=== PATIENT | female | born 1975 | race Caucasian/White ===

== ENCOUNTER 2021-04-28 19:42 | Emergency (ER) | payer BC ==
[2021-04-28] MEDS ORDERED: Sodium Chloride 0.9% 1000 ML 1,000 ML IV SCH (20:00)
[2021-04-28] MEDS ORDERED: Sodium Chloride 0.9% 1000 ML 1,000 ML ONE (20:02)
[2021-04-28 20:18] LABS: Absolute Neutrophil Ct (ANC) 5.81 (1.4-6.9); Basophil (Absolute #) 0.03 (0-0.4); Eosinophil % 0.6 % (0.00-5.0); Eosinophil (Absolute #) 0.05 (0-0.5); Hematocrit 42.7 % (35-47); Hemoglobin 13.9 gm/dl (12.0-16.0); Lymphocytes % 21.8 % (24.0-44.0); Mean Cell Volume 90.1 fl (78-100); Mean Corpuscular Hemoglobin 29.3 pg (26-32); Mean Corpuscular Hgb Concent. 32.6 g/dl (32-36); Mean Platelet Volume 9.9 fl (7.5-11.0); Monocyte (Absolute #) 0.58 (0.0-1.3); Neutrophil % 70.2 % (36.0-66.0); Platelet Count 329 K/mm3 (150-450); Red Blood Count 4.74 M/mm3 (4.1-5.4); Red Cell Distribution Width 13.4 % (11.5-14.0); White Blood Count 8.3 K/mm3 (4.0-10.5)
[2021-04-28 20:39] LABS: ALBUMIN 4.5 g/dL (3.5-5.0); ALKALINE PHOSPHATASE 73 U/L (38-126); ANION GAP 13.2 MEQ/L (5-15); BLOOD UREA NITROGEN 8 mg/dL (7-17); CHLORIDE 102 mmol/L (98-107); Calcium 9.7 mg/dL (8.4-10.2); Carbon Dioxide 26 mmol/L (22-30); Creatinine 1 0.81 mg/dL (0.52-1.04); EST GLOMERULAR FILTRATION RATE > 60.0 ML/MIN; Glucose 133 mg/dL (74-106); Potassium 3.7 mmol/L (3.5-5.1); SGOT/AST 16 U/L (14-36); SGPT/ALT 12 U/L (0-35); SODIUM 138 mmol/L (137-145); Total Protein 7.7 g/dL (6.3-8.2)
--- NOTE | 2021-04-28 22:10 | ERPHSYRPT ---
- History of Present Illness Time Seen by Provider: 04/28/21 19:50 Source: patient Exam Limitations: no limitations Patient Subjective Stated Complaint: pt states she has been having some shortness of breath for last 6 days, worse with activity and laying down. lt side abd pain worse with movement and deep breath for last 8 days. had a d dimer today that came back elevated at 666 and was told to come to er. Triage Nursing Assessment: pt alert and oreinted, answers questions approp. pt ambulatory with steadyg ait noted. respirations nonlabored with lungs cta. abd soft. pt reports tenderness in lt upper quad. bowel sounds present x4 Physician History: Patient is a 46-year-old female presents to our ED with complaints of shortness of breath. Patient has been experiencing shortness of breath for the past 6 days. Patient's primary care provider ordered a D-dimer which turned out to be positive. Patient here for CTA chest. No associated nausea vomiting or diaphoresis. Patient states that she is also been experiencing some left upper quadrant pain. Patient had a CT abdomen pelvis as well as a gallbladder u ltrasound performed by primary care provider. Per patient these were essentially nonremarkable. Patient voices no other complaints concerns at this time. Symptoms are mild in intensity. No specific worsening improving factors. Blood pressure was initially elevated upon arrival. Blood pressure has since normalized. Patient voices no other complaints concerns at this time. Timing/Duration: today Severity: moderate Modifying Factors: Improves With: nothing Associated Symptoms: shortness of breath, No abdominal pain, No loss of appetite, No syncope, No seizure, No weakness Allergies/Adverse Reactions: promethazine [From Phenergan] Adverse Reaction (Mild, Verified 04/28/21 20:22) Home Medications: Losartan Potassium 25 mg PO DAILY 04/28/21 [History] Phentermine HCl 37.5 mg PO DAILY 04/28/21 [History] Semaglutide [Ozempic] 0.25 mg SQ WEEKLY 04/28/21 [History] Hx Tetanus, Diphtheria Vaccination/Date Given: Yes Hx Influenza Vaccination/Date Given: Yes Hx Pneumococcal Vaccination/Date Given: No Immunizations Up to Date: Yes Travel Risk - International Travel Have you traveled outside of the country in past 3 weeks: No - Coronavirus Screening Are you exhibiting any of the following symptoms?: No - Vaccine Status Have you recieved a Covid-19 vaccination: Yes [employer] Worker: [employer] - Vaccination Dates Date of 2cond Vaccination (if applicable): nov 2021 - Review of Systems Constitutional: No Symptoms, No Fever, No Chills Eyes: No Symptoms Ears, Nose, & Throat: No Symptoms Respiratory: No Symptoms, No Cough, No Dyspnea Cardiac: No Symptoms, No Chest Pain, No Edema, No Syncope Abdominal/Gastrointestinal: No Symptoms, No Abdominal Pain, No Nausea, No Vomiting, No Diarrhea Genitourinary Symptoms: No Symptoms, No Dysuria Musculoskeletal: No Symptoms, No Back Pain, No Neck Pain Skin: No Symptoms, No Rash Neurological: No Symptoms, No Dizziness, No Focal Weakness, No Sensory Changes Psychological: No Symptoms Endocrine: No Symptoms Hematologic/Lymphatic: No Symptoms Immunological/Allergic: No Symptoms All Other Systems: Reviewed and Negative - Past Medical History Pertinent Past Medical History: Yes Cardiac History: Hypertension - Past Surgical History Past Surgical History: Yes Other Surgical History: uterine ablation - Social History Smoking Status: Never smoker Exposure to second hand smoke: No Drug Use: none Patient Lives Alone: No - Female History Hx Last Menstrual Period: ablation Hx Now: No - Nursing Vital Signs Nursing Vital Signs: Initial Vital Signs Temperature 97.7 F 04/28/21 19:48 Pulse Rate 96 H 04/28/21 19:48 Respiratory Rate 16 04/28/21 19:48 Blood Pressure 201/92 04/28/21 19:48 O2 Sat by Pulse Oximetry 98 04/28/21 19:48 Pain Scale Pain Intensity 4 - Physical Exam General Appearance: no apparent distress, alert Eye Exam: PERRL/EOMI, eyes nml inspection Ears, Nose, Throat Exam: normal ENT inspection, TMs normal, pharynx normal, moist mucous membranes Neck Exam: normal inspection, non-tender, supple, full range of motion Respiratory Exam: normal breath sounds, lungs clear, airway intact, No respira tory distress Cardiovascular Exam: regular rate/rhythm, normal heart sounds, normal peripheral pulses Gastrointestinal/Abdomen Exam: soft, normal bowel sounds, No tenderness, No mass Back Exam: normal inspection, normal range of motion, No CVA tenderness, No vertebral tenderness Extremity Exam: normal inspection, normal range of motion, pelvis stable Neurologic Exam: alert, oriented x 3, cooperative, construction person II-XII nml as tested, normal mood/affect, nml cerebellar function, nml station & gait, sensation nml, No motor deficits Skin Exam: normal color, warm, dry, No rash Lymphatic Exam: No adenopathy SpO2 Interpretation: normal SpO2: 99 O2 Delivery: Room Air - Course Nursing assessment & vital signs reviewed: Yes EKG Interpreted by Me: RATE (85), Sinus Rhythm, NORMAL AXIS, NORMAL INTERVALS (LVH) - CT Exams Chest CT Interpretation: Tele-radiologist Report (No comparisons. Normal CT PE study. Incidental gastric band surgery.) Ordered Tests: Active Orders 24 hr Category Date Time Status Manager Water STAT Care 04/28/21 19:58 Active EKG-ER Only STAT Care 04/28/21 19:58 Active IV Insertion STAT Care 04/28/21 19:58 Active Pulse Oximetry (ED) STAT Care 04/28/21 19:58 Active CHEST WITH CONTRAST [CT] Stat Exams 04/28/21 20:35 Taken CBC W DIFF Stat Lab 04/28/21 20:05 Completed CMP Stat Lab 04/28/21 20:05 Completed NT PRO BNP Stat Lab 04/28/21 20:05 Completed TROPONIN Q3H Lab 04/28/21 20:05 Completed TROPONIN Q3H Lab 04/28/21 22:40 Completed TROPONIN Q3H Lab 04/29/21 02:00 Ordered TROPONIN Q3H Lab 04/29/21 05:00 Ordered TROPONIN Q3H Lab 04/29/21 08:00 Ordered Medication Summary Generic Name Dose Route Start Last Admin Trade Name Freq PRN Reason Stop Dose Admin Sodium Chloride 1,000 mls @ 100 mls/hr 04/28/21 20:00 04/28/21 20:13 Sodium Chloride 0.9% 1000 Ml IV 05/28/21 19:59 100 mls/hr .Q10H CHAVA Administration Discontinued Medications Generic Name Dose Route Start Last Admin Trade Name Freq PRN Reason Stop Dose Admin Pantoprazole Sodium 40 mg 04/28/21 22:23 04/28/21 22:24 Pantoprazole 40 Mg Vial IV 04/28/21 22:24 40 mg STAT ONE Administration Pantoprazole Sodium Confirm 04/28/21 22:23 Pantoprazole 40 Mg Vial Administered 04/28/21 22:24 Dose 40 mg IV .[employer] ONE Lab/Rad Data: Laboratory Result Diagrams 04/28/21 20:05 04/28/21 20:05 Laboratory Results 04/28/21 04/28/2104/28/22 Range/Units 22:40 20:05 20:05 WBC (4.0-10.5) K/mm3 RBC (4.1-5.4) M/mm3 Hgb (12.0-16.0) gm/dl Hct (35-47) % MCV (78-100) fl MCH (26-32) pg MCHC (32-36) g/dl RDW (11.5-14.0) % Plt Count (150-450) K/mm3 MPV (7.5-11.0) fl Gran % (36.0-66.0) % Eos # (Auto) (0-0.5) Absolute Lymphs (auto) (1.0-4.6) Absolute Monos (auto) (0.0-1.3) Lymphocytes % (24.0-44.0) % Monocytes % (0.0-12.0) % Eosinophils % (0.00-5.0) % Basophils % (0.0-0.4) % Absolute Granulocytes (1.4-6.9) Basophils # (0-0.4) Sodium 138 (137-145) mmol/L Potassium 3.7 (3.5-5.1) mmol/L Chloride 102 (98-107) mmol/L Carbon Dioxide 26 (22-30) mmol/L Anion Gap 13.2 (5-15) MEQ/L BUN 8 (7-17) mg/dL Creatinine 0.81 (0.52-1.04) mg/dL Estimated GFR > 60.0 ML/MIN Glucose 133 H (74-106) mg/dL Calcium 9.7 (8.4-10.2) mg/dL Total Bilirubin 0.80 (0.2-1.3) mg/dL AST 16 (14-36) U/L ALT 12 (0-35) U/L Alkaline Phosphatase 73 (38-126) U/L Troponin I < 0.012 < 0.012 (0.000-0.034) ng/mL NT-Pro-B Natriuret Pep 27.0 (0-450) pg/mL Serum Total Protein 7.7 (6.3-8.2) g/dL Albumin 4.5 (3.5-5.0) g/dL 03/03/22 Range/Units 20:05 WBC 8.3 (4.0-10.5) K/mm3 RBC 4.74 (4.1-5.4) M/mm3 Hgb 13.9 (12.0-16.0) gm/dl Hct 42.7 (35-47) % MCV 90.1 (78-100) fl MCH 29.3 (26-32) pg MCHC 32.6 (32-36) g/dl RDW 13.4 (11.5-14.0) % Plt Count 329 (150-450) K/mm3 MPV 9.9 (7.5-11.0) fl Gran % 70.2 H (36.0-66.0) % Eos # (Auto) 0.05 (0-0.5) Absolute Lymphs (auto) 1.80 (1.0-4.6) Absolute Monos (auto) 0.58 (0.0-1.3) Lymphocytes % 21.8 L (24.0-44.0) % Monocytes % 7.0 (0.0-12.0) % Eosinophils % 0.6 (0.00-5.0) % Basophils % 0.4 (0.0-0.4) % Absolute Granulocytes 5.81 (1.4-6.9) Basophils # 0.03 (0-0.4) Sodium (137-145) mmol/L Potassium (3.5-5.1) mmol/L Chloride (98-107) mmol/L Carbon Dioxide (22-30) mmol/L Anion Gap (5-15) MEQ/L BUN (7-17) mg/dL Creatinine (0.52-1.04) mg/dL Estimated GFR ML/MIN Glucose (74-106) mg/dL Calcium (8.4-10.2) mg/dL Total Bilirubin (0.2-1.3) mg/dL AST (14-36) U/L ALT (0-35) U/L Alkaline Phosphatase (38-126) U/L Troponin I (0.000-0.034) ng/mL NT-Pro-B Natriuret Pep (0-450) pg/mL Serum Total Protein (6.3-8.2) g/dL Albumin (3.5-5.0) g/dL - Progress Progress: improved Progress Note: Patient reassessed. Patient asymptomatic. Vitals normal. Blood pressure 123/70. O2 sat 97% on room air. Heart rate 82. Patient afebrile. CT rule out PE study was negative. EKG normal sinus rhythm. Patient states she is ready for discharge. Patient follow-up with primary care doctor within 40 hours for evaluation. Patient voices no other complaints concerns at this time. 04/28/21 23:29 Portions of this note were created with voice recognition technology. There may be grammatical, spelling, punctuation or sound alike errors 04/28/21 23:31 Counseled pt/family regarding: lab results, diagnosis, need for follow-up, rad results - Departure Departure Disposition: Home Clinical Impression: Shortness of breath, Positive D dimer Condition: Stable Critical Care Time: No Referrals: KRISTOPHER MARIO NP [Primary Care Provider] - Follow up/PCP as directed Additional Instructions: Discharge/Care Plan SUMEET DE LA CRUZ was seen on 04/28/21 in the Emergency Room. The patient was counseled regarding Diagnosis,Lab results, Imaging studies, need for follow up and when to return to the Emergency Room. Prescriptions given: Discharge Note I have spoken with the patient and/or caregivers. I have explained the patient's condition, diagnosis and treatment plan based on the information available to me at this time. I have answered the patient's and/or caregiver's questions and addressed any concerns. The patient and/or caregivers have as good understanding of the patient's diagnosis, condition and treatment plan as can be expected at this point. The vital signs have been stable. The patient's condition is stable and appropriate for discharge from the emergency department. The patient will pursue further outpatient evaluation with the primary care physician or other designated or consulting physician as outlined in the discharge instructions. The patient and/or caregivers are agreeable to this plan of care and follow-up instructions have been explained in detail. The patient and/or caregivers have received these instruction. The patient/and or caregivers are aware that any significant change in condition or worsening of symptoms should prompt an immediate return to this or the closest emergency department or call 911.
[2021-04-28] MEDS ORDERED: PROTONIX 40 MG IV IV ONE ×2 (22:23)
[2021-04-28 23:44] VITALS: BP 118/75; PULSE 84; O2SAT 98
--- NOTE | 2021-04-29 08:38 | XRAY ---
Indication: Short of breath and chest pain. Elevated d-dimer. Multiple contiguous axial images obtained through the chest using 80 cc Isovue 370 contrast and PE protocol. Comparison: None There is satisfactory opacification of the pulmonary arteries to include the lobar and segmental branches. No pulmonary embolus. Heart is not enlarged. Aorta is normal in course and caliber. No pathologic mediastinal/hilar lymphadenopathy. Lungs are inflated and clear. Bony thorax intact with mild multilevel thoracic degenerative changes. Limited upper abdomen demonstrates bariatric surgery with gastric band in situ. Impression: Negative pulmonary embolus. No acute cardiopulmonary abnormalities.
== END 2021-04-28 23:49 | disposition home or self-care (01) ==
LOC: ED 19:42
DX: R06.02 Shortness of breath (principal); R79.1 Abnormal coagulation profile; R10.12 Left upper quadrant pain; I10 Essential (primary) hypertension; Z79.899 Other long term (current) drug therapy
CPT/HCPCS: 36000; 36415; 71260; 80053; 83880; 84484; 85025; 93005; 93041; 94760; 96374; 99284

== ENCOUNTER 2021-05-02 06:02 | Day surgery (SDC) | payer BC ==
[2021-05-02] MEDS ORDERED: Lactated Ringers 1,000 ML IV SCH (06:30)
[2021-05-02] MEDS ORDERED: DIPRIVAN 200 MG/20 ML IV ONE (07:33)
[2021-05-02] MEDS ORDERED: Versed 2 MG/2 ML Injection ONE (07:33)
[2021-05-02 09:30] VITALS: BP 129/79; PULSE 74; O2SAT 96
--- NOTE | 2021-05-02 14:19 | OP ---
SURGERY DATE/TIME: 05/02/2021 0735 PREOPERATIVE DIAGNOSES: 1) Epigastric pain. 2) Screening colon exam. POSTOPERATIVE DIAGNOSES: 1) Uncertain area in the fundus of large ulcer with inspissated mucus, a past or possibly eroded through gastric lap band. 2) Normal colon. PROCEDURES: 1) Esophagogastroduodenoscopy. 2) Colonoscopy. SURGEON: Dr. Duff. ANESTHESIA: Medications were given by the anesthesia department. HISTORY: The patient is a 46 year old white female presenting now for persistent severe epigastric pain. She also wishes to have her colon examined for screening procedure. The patient was appraised of the risks of the procedure including the risk of perforation, phlebitis, untoward reaction to medication, bleeding and missed lesions. The patient verbalized her understanding and desired to have the procedure performed. DESCRIPTION OF PROCEDURE: The patient was given the medications by the anesthesia department. She had continuous pulse oximetry, ECG monitoring during the examination. She was placed in the left lateral decubitus position. A bite block was placed and the flexible Olympus gastroscope was used to intubate the oropharynx. A view of the larynx was normal. The scope was easily introduced in the esophagus which was normal throughout its length. The stomach was entered. There appeared to be some tightness around the area which was expected due to gastric lap band. The gastric rugal folds were distended normally. The gastric cortes was suctioned of large amounts of mucous and food material. The scope was retroflexed where we saw the entry of scope. The fundus appeared to be fairly large of possible ulceration with inspissating mucous or adherent material. Otherwise, possible evidence of laparoscopic band. The fundus was otherwise evaluated. Pylorus intubated and the duodenum inspected and found to be normal. The scope is withdrawn towards the stomach again and then removed. Next, a digital rectal examination was performed and revealed normal anal sphincter tone and no masses. The flexible Olympus pediatric colonoscope was used to intubate the rectum. A view of the colon was developed sequentially to the cecum. Upon insertion and withdrawal, including a retroflex view in the rectum, no mucosal lesions were encountered although there was a large amount of what appeared to be oily-type material somewhat causing difficulty with the view. The scope was removed from the patient who tolerated the procedure well. The prep was noted to be fair with large amounts of liquid feces throughout the colon.
--- NOTE | 2021-05-03 09:39 | CONS ---
CONSULT DATE: 05/02/2021 HISTORY: This patient is seen at the request of Dr. Billy Duff. Dr. Morley is retail sales professional for our group today and asked to see her as I was coming over to do some outpatient procedures. Dr. Duff scoped the patient and had large ulceration sounds like it was in the proximal stomach. As the payer did not reimburse for rescoping the patient on this day, asked to see the patient and consider bringing her back to rescope or biopsy at a later date. She had some epigastric pain. She said she had gallbladder ultrasound and CT scan in the past that did not show much. She was set up for EGD and colonoscopy by Dr. Duff, which she underwent earlier. She had an ulceration that he wanted me to take a look at. She was back in the outpatient holding area and was getting ready to go home when they asked me to see her. She had some epigastric pain. PAST MEDICAL HISTORY: No chronic illnesses. PAST SURGICAL HISTORY: She had a lap band surgery back in 2012 by some surgeon that is no longer practicing in [place]. She had tonsillectomy in the past. She had ankle surgery, carpal tunnel surgery in the past it sounds like. HOME MEDICATIONS: Losartan for some hypertension. Ozempic. Prilosec. Adipex. ALLERGIES: NKDA. FAMILY HISTORY: Negative in regards to this problem. SOCIAL HISTORY: No smoking or alcohol abuse. REVIEW OF SYSTEMS: Fourteen systems reviewed per as noted above and per admission assessment. Negative or noncontributory as above and per preadmission questionnaire. PHYSICAL EXAMINATION: GENERAL: No acute distress. HEENT: Sclera nonicteric. NECK: No JVD. CHEST: Equal excursion, nonlabored breathing. CVS: She has regular pulse on the monitor. ABDOMEN: Soft, nondistended. EXTREMITIES: No significant edema. NEURO: Alert, moving extremities symmetrically. PSYCH: Appropriate mood and affect. LAB DATA AND TESTS: Her pictures were reviewed. She does have ulceration somewhat more in the proximal stomach. Again, at the time of endoscopy I was not able to scope the patient myself at this time. IMPRESSION: Ulceration of the stomach. Difficult to say as I was not there at the time of the scope whether this is eroded lap band versus neoplasia versus peptic ulcer disease. I will review her CT scan she said she had recently. I will see if it was done here and rescope and biopsy the edges of this. If it does appear to be eroded lap band-type issue to cause ulceration and erosion then she will need to follow up with bariatric surgeon in [place] or [place] if there is one present now, as our group does not do that procedure. She understands the plan. Will review her CT scan and have time reserved to rescope the patient in the future to get a better view of the area in question. The patient and family understand. No immediate emergent surgery necessary but this has propensity for perforation. Continue proton pump inhibitors in the meantime. As I was not present at the time of procedure, will review her CT scan and possibly set up follow up endoscopy.
== END 2021-05-02 09:02 | disposition home or self-care (01) ==
LOC: SDC 06:02
PROVIDERS: ATTEND Family Medicine
DX: Z12.11 Encounter for screening for malignant neoplasm of colon (principal); R10.13 Epigastric pain; K25.9 Gastric ulcer, unspecified as acute or chronic, without hemorrhage or perforation; Z98.84 Bariatric surgery status
CPT/HCPCS: J2250; J2704